=== PATIENT | male | born 1940 ===

== ENCOUNTER → 2017-06-29 | Emergency (ER) | payer OTHER ==
[~2017-06-29] VITALS: Ht 157.5 cm; Wt 59.9 kg
== END | disposition home or self-care (01) ==
LOC: ER 15:02
DX: S13.4XXA Sprain of ligaments of cervical spine, initial encounter (principal); S30.0XXA Contusion of lower back and pelvis, initial encounter; V49.9XXA Car occupant (driver) (passenger) injured in unspecified traffic accident, initial encounter; Y93.89 Activity, other specified; Y92.488 Other paved roadways as the place of occurrence of the external cause; Y99.8 Other external cause status

== ENCOUNTER 2019-02-14 11:31 | Emergency (ER) | payer OTHER ==
[~2019-02-14] VITALS: Ht 160 cm; Wt 59.9 kg
== END 2019-02-14 13:41 | disposition home or self-care (01) ==
LOC: ER 11:31
DX: S01.82XA Laceration with foreign body of other part of head, initial encounter (principal); W01.118A Fall on same level from slipping, tripping and stumbling with subsequent striking against other sharp object, initial encounter; Y93.89 Activity, other specified; Y92.480 Sidewalk as the place of occurrence of the external cause; Y99.8 Other external cause status

== ENCOUNTER → 2019-02-22 | Emergency (ER) | payer OTHER ==
[~2019-02-22] VITALS: Ht 160 cm; Wt 59.9 kg
== END | disposition left against medical advice (07) ==
LOC: ER 07:52
DX: Z53.20 Procedure and treatment not carried out because of patient's decision for unspecified reasons (principal)

== ENCOUNTER 2019-02-23 16:06 | Emergency (ER) | payer OTHER ==
[~2019-02-23] VITALS: Ht 160 cm; Wt 59.9 kg
== END 2019-02-23 18:00 | disposition home or self-care (01) ==
LOC: ER 16:06
DX: Z48.02 Encounter for removal of sutures (principal)

== ENCOUNTER → 2019-02-23 | Emergency (ER) | payer OTHER | END | disposition left against medical advice (07) | LOC: ER 07:41 | DX: Z53.20 Procedure and treatment not carried out because of patient's decision for unspecified reasons (principal) ==

== ENCOUNTER 2019-05-28 06:18 | Emergency (ER) | payer OTHER ==
[~2019-05-28] VITALS: Ht 160 cm; Wt 59.9 kg
== END 2019-05-28 09:30 | disposition home or self-care (01) ==
LOC: ER 06:18
DX: M43.6 Torticollis (principal)

== ENCOUNTER 2020-09-21 11:06 | Emergency (ER) | payer OTHER ==
[~2020-09-21] VITALS: Ht 160 cm; Wt 61.2 kg
[2020-09-21] MEDS ORDERED: AMLODIPINE-OLM1 EAC2 (11:38)
[2020-09-21] MEDS ORDERED: COMBIGAN EYE DRO5 ML (11:38)
== END 2020-09-21 15:34 | disposition home or self-care (01) ==
LOC: ER 11:06
DX: R11.11 Vomiting without nausea (principal); R10.13 Epigastric pain

== ENCOUNTER 2021-08-16 18:29 | Emergency (ER) | payer OTHER ==
[~2021-08-16] VITALS: Ht 160 cm; Wt 62.6 kg
[~2021-08-16 18:29] MED LIST: AMLODIPINE-OLM1 EAC2; COMBIGAN EYE DRO5 ML
== END 2021-08-16 21:20 | disposition home or self-care (01) ==
LOC: ER 18:29
DX: K42.9 Umbilical hernia without obstruction or gangrene (principal); K43.9 Ventral hernia without obstruction or gangrene; N28.1 Cyst of kidney, acquired; I10 Essential (primary) hypertension; Z88.6 Allergy status to analgesic agent

== ENCOUNTER 2021-12-12 08:21 | Outpatient (CLI) | payer OTHER | END 2021-12-12 08:29 | disposition home or self-care (01) | LOC: RX STUDY 08:21 | PROVIDERS: ATTEND Internal Medicine Gastroenterology | DX: R10.13 Epigastric pain (principal) ==